=== PATIENT | male | born 1940 ===

== ENCOUNTER 2023-07-29 07:39 | Emergency (ER) | payer OTHER ==
[~2023-07-29] VITALS: Ht 170.2 cm; Wt 90.5 kg
[2023-07-29 07:48] VITALS: TEMP 98
[2023-07-29] MEDS ORDERED: DICY20TA95 PO (07:54)
[2023-07-29] MEDS ORDERED: BUSP5TAB20 PO (07:54)
[2023-07-29] MEDS ORDERED: FAMO20 PO (07:54)
[2023-07-29] MEDS ORDERED: ATOR40TA28 PO (07:54)
[2023-07-29] MEDS ORDERED: LINA72CA PO (07:54)
[2023-07-29] MEDS ORDERED: LISI-894 PO (07:54)
[2023-07-29] MEDS ORDERED: METO25 PO (07:54)
[2023-07-29] MEDS ORDERED: METF-1211 PO (07:54)
[2023-07-29] MEDS: LISINOPRIL 10 MG TABLET PO ONE (08:19)
[2023-07-29] MEDS: METOPROLOL TARTRATE 25 MG TABLET PO ONE (08:19)
[2023-07-29 09:11] VITALS: BP 169/82; PULSE 62; RESP 18
== END 2023-07-29 09:39 | disposition home or self-care (01) ==
LOC: EMS 07:39
DX: I10 Essential (primary) hypertension (principal); E11.9 Type 2 diabetes mellitus without complications; Z98.890 Other specified postprocedural states
CPT/HCPCS: 82962; 99283